=== PATIENT | male | born 1960 | race Caucasian/White ===

== ENCOUNTER 2022-12-22 22:00 | Emergency (ER) | payer SELFPAY ==
--- OUTSIDE RECORDS SUMMARY | 2022-12-22 22:04 | XMS REPORT | Continuity of Care Document ---
:1960 Author Organization [facility] t Address [address] [place] [address] Care Team Providers Name Role Phone ANNIKA Attending Clinician Unavailable ANNIKA Admitting Clinician Unavailable Problems This patient has no known problems. Allergies, Adverse Reactions, Alerts This patient has no known allergies or adverse reactions. Medications This patient has no known medications. Procedures This patient has no known procedures. Encounters Start End Encounter Admission Attending Care Care Encounter Source Date/Time Date/Time Type Type Clinicians Facility Department ID 2021-10-10 2021-10-10 Outpatient [facility] [id number] 00:00:00 00:00:00 [facility] [address] [facility] Program Results This patient has no known results.
[2022-12-22] MEDS ORDERED: HYDROCODONE/APAP 5/325 MG TAB ONE (22:56)
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
[2022-12-23 00:27] VITALS: TEMP 98.1; O2SAT 100
[2022-12-23 00:29] VITALS: BP 127/85
--- NOTE | 2022-12-23 12:28 | RAD REPORT ---
EXAM DESCRIPTION: XR Left Shoulder Complete, 2 Views CLINICAL HISTORY: PAIN TECHNIQUE: Two views of the left shoulder. COMPARISON: No relevant prior studies available. FINDINGS: Bones/joints: Unremarkable. No acute fracture. No dislocation. Soft tissues: Unremarkable. IMPRESSION: No acute injury. Electronically signed by: Aditi Jennings MD 12/22/2022 11:31 PM CDT Due to temporary technical issues with the PACS/Fluency reporting system, reports are being signed by the in house radiologist without review as a courtesy to ensure prompt reporting. The interpreting r adiologist is fully responsible for the content of the report.
--- NOTE | 2022-12-23 12:31 | RAD REPORT ---
EXAM DESCRIPTION: XR Right Ankle 3 Views CLINICAL HISTORY: Pain COMPARISON: None. TECHNIQUE: Right Ankle 3 Views FINDINGS: No fracture or dislocation. No significant sclerotic/lytic bone lesion. Joint spaces unremarkable. Osteopenia or diffuse decreased bone density. Soft tissues unremarkable. IMPRESSION: Unremarkable Right Ankle Radiographs. Electronically signed by: Alvino Tidwell MD 12/22/2022 11:30 PM CDT Due to temporary technical issues with the PACS/Fluency reporting system, reports are being signed by the in house radiologist without review as a courtesy to ensure prompt reporting. The interpreting r adiologist is fully responsible for the content of the report.
== END 2022-12-22 23:57 | disposition home or self-care (01) ==
LOC: ER 22:00
DX: S46.912A Strain of unspecified muscle, fascia and tendon at shoulder and upper arm level, left arm, initial encounter (principal); M25.571 Pain in right ankle and joints of right foot; F17.210 Nicotine dependence, cigarettes, uncomplicated
CPT/HCPCS: 99284